=== PATIENT | female | born 2000 | race Two or more races ===

== ENCOUNTER 2022-08-14 17:29 | Emergency (ER) | payer OTHER ==
[~2022-08-14] VITALS: Ht 160 cm; Wt 61.2 kg
[2022-08-14 17:53] VITALS: BP 122/88
--- NOTE | 2022-08-14 19:30 | NUR ---
Called first time by PA Guerrero, no show in lobby and outside.
--- NOTE | 2022-08-14 20:14 | NUR ---
PATIENT LEFT WITHOUT BEING SEEN BY PA ADRIAN. NO FURTHER CARE PROVIDED FOR PATIENT.
== END 2022-08-14 19:30 | disposition left against medical advice (07) ==
LOC: MED 17:29
DX: F41.9 Anxiety disorder, unspecified (principal); Z53.21 Procedure and treatment not carried out due to patient leaving prior to being seen by health care provider

== ENCOUNTER 2023-07-05 19:56 | Emergency (ER) | payer OTHER ==
[~2023-07-05] VITALS: Ht 167.6 cm; Wt 60.8 kg
[2023-07-05 20:13] VITALS: BP 139/99; PULSE 117; RESP 18; TEMP 97.1; O2SAT 99
[2023-07-05] MEDS ORDERED: ATA25 PO (22:22)
[2023-07-05 22:31] VITALS: BP 126/71; PULSE 74; RESP 20; TEMP 97.8; O2SAT 100
[2023-07-05 22:59] LABS: BASOPHILS % (AUTO) 0.3 % (0.0-2.0); EOSINOPHILS # (AUTO) 0.1 K/uL (0-0.4); HEMOGLOBIN 13.4 g/dL (12.0-16.0); LYMPHOCYTES # (AUTO) 1.3 K/uL (2.5-16.5); LYMPHOCYTES % (AUTO) 11.2 % (20.5-51.1); MEAN CORPUSCULAR HEMOGLOBIN 30 pg (27-31); MEAN CORPUSCULAR HGB CONC 33 g/dL (33-37); MEAN CORPUSCULAR VOLUME 90.9 fL (80-94); MONOCYTES # (AUTO) 0.5 K/uL (0.8-1.0); MONOCYTES % (AUTO) 4.2 % (1.7-9.3); NEUTROPHILS # (AUTO) 9.6 K/uL (1.8-7.7); NEUTROPHILS % (AUTO) 83.3 % (42.2-75.2); PLATELET COUNT (AUTO) 212 K/uL (140-450); RED CELL DISTRIBUTION WIDTH 13.8 % (11.6-13.7); WHITE BLOOD COUNT (AUTO) 11.5 K/uL (4.8-10.8)
[2023-07-05 23:16] LABS: ANION GAP 13.8 (8-16); CALCIUM 9.1 mg/dL (8.5-10.1); CARBON DIOXIDE 24.2 mmol/L (21-32); CREATININE 0.7 mg/dL (0.6-1.3)
[2023-07-05] MEDS: POTASSIUM CHLORIDE 10 MEQ TABER PO ONE (23:45)
== END 2023-07-05 23:44 | disposition home or self-care (01) ==
LOC: MED 19:56
DX: F41.0 Panic disorder [episodic paroxysmal anxiety] (principal); J45.909 Unspecified asthma, uncomplicated; Z79.899 Other long term (current) drug therapy
CPT/HCPCS: 36415; 80048; 85025; 85379; 93005; 99284